=== PATIENT | female | born 1990 | race Two or more races ===

== ENCOUNTER 2020-09-13 15:02 | Emergency (ER) | payer BC, MEDICAID ==
[~2020-09-13] VITALS: Ht 160 cm; Wt 89.8 kg
[2020-09-13] MEDS: cefTRIAXone SOD 1,000 MG VL IM ONE (16:15)
[2020-09-13] MEDS: methylPREDNISolone SOD SUCC 125 MG/2 ML VL IM ONE (16:15)
[2020-09-13 17:08] VITALS: BP 126/86
== END 2020-09-13 17:22 | disposition home or self-care (01) ==
LOC: ER 15:02
DX: J03.00 Acute streptococcal tonsillitis, unspecified (principal)
CPT/HCPCS: 87880; 96372; 99284; J0696; J2930

== ENCOUNTER 2020-09-26 09:38 | Emergency (ER) | payer MEDICAID ==
[~2020-09-26] VITALS: Ht 160 cm; Wt 89.8 kg
[2020-09-26 10:43] VITALS: BP 126/92
== END 2020-09-26 11:04 | disposition home or self-care (01) ==
LOC: ER 09:38
DX: S50.322A Blister (nonthermal) of left elbow, initial encounter (principal); L08.9 Local infection of the skin and subcutaneous tissue, unspecified; X58.XXXA Exposure to other specified factors, initial encounter; Y93.89 Activity, other specified; Y92.89 Other specified places as the place of occurrence of the external cause; Y99.8 Other external cause status

== ENCOUNTER 2020-10-09 12:10 | Emergency (ER) | payer MEDICAID ==
[~2020-10-09] VITALS: Ht 160 cm; Wt 89.8 kg
[2020-10-09 12:30] VITALS: BP 140/71
[2020-10-09] MEDS ORDERED: methylPREDNISolone SOD SUCC 125 MG/2 ML VL IM ONE (13:15)
== END 2020-10-09 13:42 | disposition home or self-care (01) ==
LOC: ER 12:10
DX: R21 Rash and other nonspecific skin eruption (principal)
CPT/HCPCS: 96372; 99283; J2930